=== PATIENT | male | born 1940 | race Caucasian/White ===

== ENCOUNTER 2024-03-30 10:08 | Inpatient (IN) ==
[2024-03-30] MEDS ORDERED: IOPAMIDOL 100 ML BOTTLE IV ONE (10:09)
[2024-03-30] MEDS: 0.9 % SODIUM CHLORIDE 500 ML IV ONE (10:43)
[2024-03-30 10:52] LABS: Basophils # (Auto) 0.04 K/mcL (0.00-0.30); Basophils % (Auto) 0.2 % (0.0-2.0); Eosinophils # (Auto) 0.03 K/mcL (0.00-0.70); Eosinophils % (Auto) 0.2 % (0.0-7.0); Hematocrit 41.7 % (40.1-51.0); Hemoglobin 12.7 g/dL (13.7-17.5); Lymphocytes # (Auto) 0.95 K/mcL (1.50-4.80); Lymphocytes % (Auto) 5.8 % (15.5-49.0); Mean Corpuscular HGB Conc 30.5 g/dL (31.0-36.0); Mean Platelet Volume 11.2 fL (8.8-12.5); Monocytes # (Auto) 1.92 K/mcL (0.10-0.90); Monocytes % (Auto) 11.8 % (1.0-12.0); Neutrophils % (Auto) 81.3 % (38.0-78.0); Platelet Count 231 K/mcL (140-440); Red Cell Distribution Width 14.9 % (11.5-14.5); WBC 16.3 K/mcL (4.5-11.0)
[2024-03-30] MEDS: VANCOMYCIN 1,500 MG in 0.9 % SODIUM CHLORIDE 500 ML IV ONE (11:17)
[2024-03-30 11:22] LABS: ALT/SGPT 14 U/L (<40); AST/SGOT 35 U/L (<40); Albumin 3.4 gm/dL (3.2-5.2); Alkaline Phosphatase 57 U/L (39-117); Bilirubin,Total 0.5 mg/dL (0.1-1.0); Blood Urea Nitrogen 28 mg/dL (8-23); Calcium 9.6 mg/dL (8.6-10.4); Carbon Dioxide 33 mmol/L (22-30); Chloride 97 mmol/L (96-108); Globulin 3.5 gm/dL (2.2-3.7); Glomerular Filtration Rate 50; Glucose 153 mg/dL (70-105); Potassium 4.2 mmol/L (3.3-5.1); Sodium 141 mmol/L (133-145)
[2024-03-30] MEDS: PIPERACILLIN SODIUM/TAZOBACTAM 3.375 GM in DEXTROSE 5% IN WATER 50 ML IV ONE (11:42)
[2024-03-30 11:54] LABS: Free T4 (Free Thyroxine) 1.28 ng/dL (0.93-1.70)
[2024-03-30] MEDS: FUROSEMIDE 100 MG/10 ML VIAL IV ONE (12:25)
[2024-03-30 13:10] LABS: Appearance,Urine Clear (Clear); Bilirubin,Urine Negative (Negative); Color,Urine Yellow; Glucose,Urine (UA) Negative (Negative); Ketones,Urine 15 mg/dL (Negative); Leukocyte Esterase,Urine Negative /uL (Negative); Nitrate,Urine Negative (Negative); PH,Urine 6.5 (5.0-9.0); Protein,Urine 100 mg/dL (Negative); Specific Gravity,Urine 1.015 (1.000-1.035); Urine Blood Small ery/mcL (Negative); Urine Granular Cast 11 /lph (0-0); Urine RBC 0 /hpf (0-3); Urine Squamous Epithelial Cell 0 /hpf (0-4); Urine WBC 0 /hpf (0-4); Urobilinogen,Urine Normal
[2024-03-30] MEDS: LORazepam 2 MG/ML VIAL IV ONE (13:35)
[2024-03-30] MEDS: OLANZapine 10 MG VIAL IM SCH ×2 (14:36→15:19)
[2024-03-30] MEDS ORDERED: PIPERACILLIN SODIUM/TAZOBACTAM 4.5 GM in DEXTROSE 5% IN WATER 50 ML IV SCH (17:15)
[2024-03-30] MEDS ORDERED: ACETAMINOPHEN 325 MG TABLET PO PRN (18:41)
[2024-03-30] MEDS ORDERED: SENNOSIDES 1 TABLET PO PRN (18:41)
[2024-03-30] MEDS ORDERED: IPRATROPIUM/ALBUTEROL 3 ML AMPUL.NEB NEB PRN (18:41)
[2024-03-30] MEDS ORDERED: ONDANSETRON 4 MG/2 ML VIAL IV PRN (18:41)
[2024-03-30] MEDS ORDERED: POLYETHYLENE GLYCOL 3350 17 GM PACKET PO PRN (18:41)
[2024-03-30] MEDS ORDERED: BISACODYL 10 MG SUPP.RECT PR PRN (18:41)
[2024-03-30] MEDS: PIPERACILLIN SODIUM/TAZOBACTAM 4.5 GM in DEXTROSE 5% IN WATER 100 ML IV SCH (19:22)
[2024-03-30] MEDS: HYDROCORTISONE SOD SUCC 100 MG VIAL IV SCH (19:22)
[2024-03-30] MEDS: VANCOMYCIN PER PHARMACY IV ONE (19:24)
[2024-03-30] MEDS: morphine 4 MG/ML VIAL IV PRN (20:52)
[2024-03-30] MEDS: LACTATED RINGERS 1,000 ML IV SCH (21:16)
[2024-03-30] MEDS: FUROSEMIDE 40 MG/4 ML VIAL IV SCH (21:47)
[2024-03-30] MEDS: 0.9 % SODIUM CHLORIDE 10 ML SYRINGE IV SCH (23:42)
[2024-03-30] MEDS: TACROLIMUS 0.5 MG CAPSULE PO SCH (23:47)
[2024-03-31 06:30] LABS: Vancomycin,Random 8.5 ug/mL
[2024-03-31 06:39] LABS: Basophils # (Auto) 0.03 K/mcL (0.00-0.30); Basophils % (Auto) 0.2 % (0.0-2.0); Eosinophils # (Auto) 0.01 K/mcL (0.00-0.70); Eosinophils % (Auto) 0.1 % (0.0-7.0); Hematocrit 40.9 % (40.1-51.0); Hemoglobin 12.5 g/dL (13.7-17.5); Lymphocytes # (Auto) 1.19 K/mcL (1.50-4.80); Lymphocytes % (Auto) 9.1 % (15.5-49.0); Mean Cell Volume 97.8 fL (80.0-100.0); Mean Corpuscular HGB Conc 30.6 g/dL (31.0-36.0); Mean Platelet Volume 11.3 fL (8.8-12.5); Monocytes # (Auto) 0.98 K/mcL (0.10-0.90); Monocytes % (Auto) 7.5 % (1.0-12.0); Neutrophils % (Auto) 82.5 % (38.0-78.0); Platelet Count 230 K/mcL (140-440); RBC 4.18 M/mcL (4.63-6.08); Red Cell Distribution Width 14.8 % (11.5-14.5); WBC 13.1 K/mcL (4.5-11.0)
[2024-03-31 06:53] LABS: ALT/SGPT 20 U/L (<40); AST/SGOT 46 U/L (<40); Albumin 3.3 gm/dL (3.2-5.2); Albumin/Globulin Ratio 0.9 (1.0-2.3); Alkaline Phosphatase 52 U/L (39-117); Bilirubin,Direct < 0.2 mg/dL (0-0.3); Bilirubin,Total 0.4 mg/dL (0.1-1.0); Blood Urea Nitrogen 34 mg/dL (8-23); Calcium 9.4 mg/dL (8.6-10.4); Carbon Dioxide 34 mmol/L (22-30); Chloride 97 mmol/L (96-108); Globulin 3.5 gm/dL (2.2-3.7); Glomerular Filtration Rate 42; Glucose 137 mg/dL (70-105); Lactate Dehydrogenase 281 U/L (135-225); Phosphorous 4.7 mg/dL (2.5-4.5); Potassium 3.6 mmol/L (3.3-5.1); Sodium 146 mmol/L (133-145); Triglycerides 118 mg/dL (<150); Uric Acid 7.8 mg/dL (2.5-8.0)
[2024-03-31] MEDS ORDERED: VANCOMYCIN PER PHARMACY IV SCH (07:19)
[2024-03-31] MEDS: LACTATED RINGERS 1,000 ML IV SCH (07:53)
[2024-03-31] MEDS: VANCOMYCIN 1,500 MG in 0.9 % SODIUM CHLORIDE 500 ML IV SCH (10:04)
[2024-03-31] MEDS ORDERED: [UNRECOGNIZED DRUG - OTHER] SCH (10:30)
[2024-03-31] MEDS: ASPIRIN 325 MG ENTERIC COATED TABLET PO SCH (10:32)
[2024-03-31] MEDS: PANTOPRAZOLE 40 MG TABLET PO SCH (10:33)
[2024-03-31] MEDS: ASPIRIN 81 MG TAB.CHEW CHEWED SCH (15:13)
[2024-03-31 15:38] LABS: Blood Urea Nitrogen 38 mg/dL (8-23); Calcium 8.8 mg/dL (8.6-10.4); Carbon Dioxide 35 mmol/L (22-30); Chloride 98 mmol/L (96-108); Glomerular Filtration Rate 42; Glucose 126 mg/dL (70-105); Potassium 4.2 mmol/L (3.3-5.1); Sodium 144 mmol/L (133-145)
[2024-03-31] MEDS: morphine 2 MG/ML VIAL IV PRN (17:27)
[2024-03-31] MEDS ORDERED: NALOXONE HCL 0.4 MG/ML VIAL IV PRN (17:39)
[2024-03-31] MEDS: morphine 2 MG/ML VIAL IV SCH (17:47)
[2024-03-31] MEDS: QUEtiapine 25 MG TABLET PO SCH ×2 (17:57→18:57)
[2024-03-31] MEDS: traZODone HCL 50 MG TABLET PO PRN (21:18)
[2024-04-01] MEDS: LACTATED RINGERS 1,000 ML IV SCH (02:18)
[2024-04-01 06:09] LABS: Basophils # (Auto) 0.03 K/mcL (0.00-0.30); Basophils % (Auto) 0.3 % (0.0-2.0); Eosinophils # (Auto) 0.02 K/mcL (0.00-0.70); Eosinophils % (Auto) 0.2 % (0.0-7.0); Hematocrit 39.1 % (40.1-51.0); Hemoglobin 11.8 g/dL (13.7-17.5); Lymphocytes # (Auto) 1.09 K/mcL (1.50-4.80); Lymphocytes % (Auto) 9.8 % (15.5-49.0); Mean Cell Volume 99.2 fL (80.0-100.0); Mean Corpuscular HGB Conc 30.2 g/dL (31.0-36.0); Mean Platelet Volume 11.1 fL (8.8-12.5); Monocytes # (Auto) 0.91 K/mcL (0.10-0.90); Monocytes % (Auto) 8.2 % (1.0-12.0); Neutrophils % (Auto) 80.9 % (38.0-78.0); Platelet Count 242 K/mcL (140-440); RBC 3.94 M/mcL (4.63-6.08); Red Cell Distribution Width 14.6 % (11.5-14.5); WBC 11.1 K/mcL (4.5-11.0)
[2024-04-01 06:38] LABS: ALT/SGPT 21 U/L (<40); AST/SGOT 39 U/L (<40); Albumin 3.1 gm/dL (3.2-5.2); Albumin/Globulin Ratio 0.9 (1.0-2.3); Alkaline Phosphatase 44 U/L (39-117); Bilirubin,Direct < 0.2 mg/dL (0-0.3); Bilirubin,Total 0.3 mg/dL (0.1-1.0); Blood Urea Nitrogen 41 mg/dL (8-23); Calcium 8.8 mg/dL (8.6-10.4); Carbon Dioxide 38 mmol/L (22-30); Chloride 101 mmol/L (96-108); Globulin 3.3 gm/dL (2.2-3.7); Glomerular Filtration Rate 45; Glucose 122 mg/dL (70-105); Lactate Dehydrogenase 237 U/L (135-225); Potassium 3.4 mmol/L (3.3-5.1); Sodium 150 mmol/L (133-145); Triglycerides 121 mg/dL (<150); Uric Acid 8.2 mg/dL (2.5-8.0)
[2024-04-01] MEDS: LEVOTHYROXINE 25 MCG TABLET PO SCH (08:08)
[2024-04-01] MEDS: 0.45 % SODIUM CHLORIDE 1,000 ML IV SCH ×2 (08:09→16:39)
[2024-04-01] MEDS: OLANZapine 10 MG VIAL IM SCH (08:15)
[2024-04-01] MEDS: TAMSULOSIN 0.4 MG CAPSULE PO SCH (09:43)
[2024-04-01] MEDS: predniSONE 10 MG TABLET PO SCH (11:57)
[2024-04-01 13:23] LABS: Sodium 146 mmol/L (133-145)
[2024-04-01] MEDS ORDERED: HYDROCORTISONE SOD SUCC 100 MG VIAL IV SCH (14:00)
[2024-04-01] MEDS: morphine 2 MG/ML VIAL IV PRN (19:07)
[2024-04-01] MEDS: QUEtiapine 25 MG TABLET PO PRN (20:46)
[2024-04-02 06:56] LABS: Basophils # (Auto) 0.05 K/mcL (0.00-0.30); Basophils % (Auto) 0.3 % (0.0-2.0); Eosinophils # (Auto) 0.33 K/mcL (0.00-0.70); Eosinophils % (Auto) 2.1 % (0.0-7.0); Hematocrit 43.3 % (40.1-51.0); Hemoglobin 13.2 g/dL (13.7-17.5); Lymphocytes # (Auto) 2.78 K/mcL (1.50-4.80); Mean Cell Volume 97.3 fL (80.0-100.0); Mean Corpuscular HGB Conc 30.5 g/dL (31.0-36.0); Mean Platelet Volume 10.6 fL (8.8-12.5); Monocytes # (Auto) 1.86 K/mcL (0.10-0.90); Neutrophils % (Auto) 66.9 % (38.0-78.0); Platelet Count 277 K/mcL (140-440); RBC 4.45 M/mcL (4.63-6.08); Red Cell Distribution Width 14.3 % (11.5-14.5); WBC 15.5 K/mcL (4.5-11.0)
[2024-04-02 07:30] LABS: C-Reactive Protein 9.09 mg/dL (0.03-0.80)
[2024-04-02 07:37] LABS: ALT/SGPT 23 U/L (<40); AST/SGOT 41 U/L (<40); Albumin 3.5 gm/dL (3.2-5.2); Alkaline Phosphatase 49 U/L (39-117); Bilirubin,Direct < 0.2 mg/dL (0-0.3); Bilirubin,Total 0.4 mg/dL (0.1-1.0); Blood Urea Nitrogen 33 mg/dL (8-23); Calcium 9.1 mg/dL (8.6-10.4); Carbon Dioxide 37 mmol/L (22-30); Chloride 99 mmol/L (96-108); Globulin 3.5 gm/dL (2.2-3.7); Glomerular Filtration Rate 45; Glucose 107 mg/dL (70-105); Lactate Dehydrogenase 298 U/L (135-225); Phosphorous 1.8 mg/dL (2.5-4.5); Potassium 2.9 mmol/L (3.3-5.1); Sodium 148 mmol/L (133-145); Triglycerides 106 mg/dL (<150); Uric Acid 6.2 mg/dL (2.5-8.0)
[2024-04-02] MEDS: predniSONE 5 MG TABLET PO SCH (08:36)
[2024-04-02] MEDS: POTASSIUM CHLORIDE 20 MEQ PACKET PO ONE (08:36)
[2024-04-02] MEDS: POTASSIUM PHOSPHATE 40 MEQ in DEXTROSE 5% IN WATER 500 ML IV ONE (09:08)
[2024-04-02 14:47] LABS: Potassium 3.6 mmol/L (3.3-5.1)
[2024-04-02] MEDS: 0.45 % SODIUM CHLORIDE 1,000 ML IV SCH (15:16)
[2024-04-02 16:17] LABS: Blood Urea Nitrogen 30 mg/dL (8-23); Calcium 8.7 mg/dL (8.6-10.4); Carbon Dioxide 37 mmol/L (22-30); Chloride 98 mmol/L (96-108); Glomerular Filtration Rate 45; Glucose 183 mg/dL (70-105); Potassium 3.7 mmol/L (3.3-5.1); Sodium 147 mmol/L (133-145)
[2024-04-02] MEDS: FUROSEMIDE 40 MG/4 ML VIAL IV SCH (16:49)
[2024-04-02] MEDS: POTASSIUM CHLORIDE 20 MEQ in 0.45 % SODIUM CHLORIDE 1,000 ML IV SCH (17:47)
[2024-04-02] MEDS: OLANZapine 10 MG VIAL ONE (19:57)
[2024-04-02] MEDS: OLANZapine 10 MG VIAL IM SCH (19:58)
[2024-04-03 07:12] LABS: Basophils # (Auto) 0.06 K/mcL (0.00-0.30); Basophils % (Auto) 0.4 % (0.0-2.0); Eosinophils % (Auto) 4.5 % (0.0-7.0); Hematocrit 44.6 % (40.1-51.0); Hemoglobin 13.3 g/dL (13.7-17.5); Lymphocytes # (Auto) 2.08 K/mcL (1.50-4.80); Lymphocytes % (Auto) 15.5 % (15.5-49.0); Mean Corpuscular HGB Conc 29.8 g/dL (31.0-36.0); Mean Platelet Volume 10.6 fL (8.8-12.5); Monocytes # (Auto) 2.02 K/mcL (0.10-0.90); Monocytes % (Auto) 15.1 % (1.0-12.0); Neutrophils % (Auto) 63.7 % (38.0-78.0); Platelet Count 306 K/mcL (140-440); RBC 4.55 M/mcL (4.63-6.08); Red Cell Distribution Width 14.2 % (11.5-14.5); WBC 13.4 K/mcL (4.5-11.0)
[2024-04-03 07:24] LABS: ALT/SGPT 25 U/L (<40); AST/SGOT 39 U/L (<40); Albumin 3.6 gm/dL (3.2-5.2); Alkaline Phosphatase 49 U/L (39-117); Bilirubin,Direct < 0.2 mg/dL (0-0.3); Bilirubin,Total 0.5 mg/dL (0.1-1.0); Blood Urea Nitrogen 29 mg/dL (8-23); Calcium 9.3 mg/dL (8.6-10.4); Carbon Dioxide 39 mmol/L (22-30); Chloride 95 mmol/L (96-108); Globulin 3.5 gm/dL (2.2-3.7); Glomerular Filtration Rate 49; Glucose 114 mg/dL (70-105); Lactate Dehydrogenase 292 U/L (135-225); Phosphorous 2.8 mg/dL (2.5-4.5); Potassium 3.2 mmol/L (3.3-5.1); Sodium 147 mmol/L (133-145); Triglycerides 164 mg/dL (<150); Uric Acid 5.8 mg/dL (2.5-8.0)
[2024-04-03] MEDS: predniSONE 5 MG TABLET PO SCH (07:48)
[2024-04-03] MEDS: POTASSIUM CHLORIDE 80 MEQ in DEXTROSE 5% IN WATER 1,000 ML IV ONE (09:08)
[2024-04-03 14:09] LABS: Tacrolimus (Prograf)-SO 3.4 ng/mL (2.0-20.0)
[2024-04-03] MEDS: OLANZapine 5 MG TABLET PO PRN (20:30)
[2024-04-04 06:51] LABS: Basophils # (Auto) 0.04 K/mcL (0.00-0.30); Basophils % (Auto) 0.3 % (0.0-2.0); Eosinophils # (Auto) 0.46 K/mcL (0.00-0.70); Hematocrit 40.7 % (40.1-51.0); Hemoglobin 12.4 g/dL (13.7-17.5); Lymphocytes # (Auto) 1.63 K/mcL (1.50-4.80); Mean Cell Volume 98.1 fL (80.0-100.0); Mean Corpuscular HGB Conc 30.5 g/dL (31.0-36.0); Mean Platelet Volume 10.5 fL (8.8-12.5); Monocytes # (Auto) 1.58 K/mcL (0.10-0.90); Monocytes % (Auto) 13.6 % (1.0-12.0); Neutrophils % (Auto) 67.3 % (38.0-78.0); Platelet Count 305 K/mcL (140-440); RBC 4.15 M/mcL (4.63-6.08); Red Cell Distribution Width 14.1 % (11.5-14.5); WBC 11.6 K/mcL (4.5-11.0)
[2024-04-04 07:31] LABS: ALT/SGPT 23 U/L (<40); AST/SGOT 32 U/L (<40); Albumin 3.3 gm/dL (3.2-5.2); Albumin/Globulin Ratio 1.1 (1.0-2.3); Alkaline Phosphatase 44 U/L (39-117); Bilirubin,Direct < 0.2 mg/dL (0-0.3); Bilirubin,Total 0.4 mg/dL (0.1-1.0); Blood Urea Nitrogen 31 mg/dL (8-23); Calcium 9.5 mg/dL (8.6-10.4); Carbon Dioxide 38 mmol/L (22-30); Chloride 96 mmol/L (96-108); Globulin 3.1 gm/dL (2.2-3.7); Glomerular Filtration Rate 45; Glucose 103 mg/dL (70-105); Lactate Dehydrogenase 230 U/L (135-225); Phosphorous 2.8 mg/dL (2.5-4.5); Potassium 3.7 mmol/L (3.3-5.1); Sodium 144 mmol/L (133-145); Triglycerides 152 mg/dL (<150)
[2024-04-04] MEDS: ACETAMINOPHEN 1,000 MG/100 ML BAG IV ONE (10:02)
[2024-04-05 10:22] LABS: Basophils # (Auto) 0.05 K/mcL (0.00-0.30); Basophils % (Auto) 0.4 % (0.0-2.0); Eosinophils # (Auto) 0.51 K/mcL (0.00-0.70); Eosinophils % (Auto) 3.9 % (0.0-7.0); Hematocrit 42.8 % (40.1-51.0); Lymphocytes # (Auto) 2.36 K/mcL (1.50-4.80); Lymphocytes % (Auto) 18.1 % (15.5-49.0); Mean Cell Volume 97.3 fL (80.0-100.0); Mean Corpuscular HGB Conc 30.4 g/dL (31.0-36.0); Mean Platelet Volume 10.2 fL (8.8-12.5); Monocytes # (Auto) 1.35 K/mcL (0.10-0.90); Monocytes % (Auto) 10.4 % (1.0-12.0); Neutrophils % (Auto) 66.4 % (38.0-78.0); Platelet Count 333 K/mcL (140-440)
[2024-04-05] MEDS: ACETAMINOPHEN 500 MG TABLET PO PRN (10:25)
[2024-04-05 10:43] LABS: C-Reactive Protein 2.67 mg/dL (0.03-0.80)
[2024-04-05 10:52] LABS: Blood Urea Nitrogen 28 mg/dL (8-23); Calcium 10.1 mg/dL (8.6-10.4); Carbon Dioxide 40 mmol/L (22-30); Chloride 95 mmol/L (96-108); Glomerular Filtration Rate 61; Glucose 117 mg/dL (70-105); Potassium 3.8 mmol/L (3.3-5.1); Sodium 143 mmol/L (133-145)
[2024-04-06 08:16] LABS: Basophils # (Auto) 0.05 K/mcL (0.00-0.30); Basophils % (Auto) 0.4 % (0.0-2.0); Eosinophils # (Auto) 0.46 K/mcL (0.00-0.70); Eosinophils % (Auto) 3.6 % (0.0-7.0); Hematocrit 43.6 % (40.1-51.0); Hemoglobin 13.1 g/dL (13.7-17.5); Lymphocytes # (Auto) 2.24 K/mcL (1.50-4.80); Lymphocytes % (Auto) 17.5 % (15.5-49.0); Mean Cell Volume 97.8 fL (80.0-100.0); Mean Platelet Volume 10.2 fL (8.8-12.5); Monocytes # (Auto) 1.49 K/mcL (0.10-0.90); Monocytes % (Auto) 11.7 % (1.0-12.0); Neutrophils % (Auto) 65.9 % (38.0-78.0); Platelet Count 336 K/mcL (140-440); RBC 4.46 M/mcL (4.63-6.08); WBC 12.8 K/mcL (4.5-11.0)
[2024-04-06 08:36] LABS: ALT/SGPT 20 U/L (<40); AST/SGOT 27 U/L (<40); Albumin 3.5 gm/dL (3.2-5.2); Albumin/Globulin Ratio 1.1 (1.0-2.3); Alkaline Phosphatase 52 U/L (39-117); Bilirubin,Direct < 0.2 mg/dL (0-0.3); Bilirubin,Total 0.2 mg/dL (0.1-1.0); Blood Urea Nitrogen 26 mg/dL (8-23); Calcium 10.3 mg/dL (8.6-10.4); Carbon Dioxide 40 mmol/L (22-30); Chloride 96 mmol/L (96-108); Globulin 3.3 gm/dL (2.2-3.7); Glomerular Filtration Rate 61; Glucose 125 mg/dL (70-105); Lactate Dehydrogenase 217 U/L (135-225); Potassium 3.6 mmol/L (3.3-5.1); Sodium 143 mmol/L (133-145); Triglycerides 167 mg/dL (<150); Uric Acid 6.4 mg/dL (2.5-8.0)
[2024-04-06] MEDS: LISINOPRIL 20 MG TABLET PO SCH (08:36)
[2024-04-06] MEDS: LEVOFLOXACIN 750 MG/150 ML BAG IV SCH (09:32)
[2024-04-06 09:37] LABS: Band Neutrophils % 1 % (0-10); Eosinophils % (Manual) 5 % (0-7); Lymphocytes % 18 % (15-49); Monocytes % (Manual) 9 % (1-12); Myelocytes % 1 %; Platelet Estimate NORMAL (Normal); RBC Morphology NORMAL (Normal); Segmented Neutrophils % 66 % (38-78)
[2024-04-06] MEDS ORDERED: LABETALOL HCL 20 MG/4 ML VIAL IV PRN (12:14)
[2024-04-06] MEDS: acetaZOLAMIDE SOD 500 MG VIAL IV ONE (12:38)
[2024-04-06] MEDS: QUEtiapine 25 MG TABLET PO PRN (22:42)
[2024-04-07 06:38] LABS: Basophils # (Auto) 0.04 K/mcL (0.00-0.30); Basophils % (Auto) 0.3 % (0.0-2.0); Eosinophils # (Auto) 0.33 K/mcL (0.00-0.70); Eosinophils % (Auto) 2.1 % (0.0-7.0); Hematocrit 43.8 % (40.1-51.0); Lymphocytes # (Auto) 2.22 K/mcL (1.50-4.80); Lymphocytes % (Auto) 14.2 % (15.5-49.0); Mean Cell Volume 99.3 fL (80.0-100.0); Mean Corpuscular HGB Conc 29.7 g/dL (31.0-36.0); Mean Platelet Volume 10.8 fL (8.8-12.5); Monocytes # (Auto) 1.63 K/mcL (0.10-0.90); Monocytes % (Auto) 10.5 % (1.0-12.0); Neutrophils % (Auto) 72.1 % (38.0-78.0); Platelet Count 333 K/mcL (140-440); RBC 4.41 M/mcL (4.63-6.08); Red Cell Distribution Width 14.4 % (11.5-14.5); WBC 15.6 K/mcL (4.5-11.0)
[2024-04-07 07:04] LABS: ALT/SGPT 19 U/L (<40); AST/SGOT 25 U/L (<40); Albumin 3.2 gm/dL (3.2-5.2); Alkaline Phosphatase 50 U/L (39-117); Bilirubin,Direct < 0.2 mg/dL (0-0.3); Bilirubin,Total 0.3 mg/dL (0.1-1.0); Blood Urea Nitrogen 36 mg/dL (8-23); Calcium 10.2 mg/dL (8.6-10.4); Carbon Dioxide 37 mmol/L (22-30); Chloride 96 mmol/L (96-108); Globulin 3.2 gm/dL (2.2-3.7); Glomerular Filtration Rate 42; Glucose 117 mg/dL (70-105); Lactate Dehydrogenase 202 U/L (135-225); Potassium 3.2 mmol/L (3.3-5.1); Sodium 142 mmol/L (133-145); Triglycerides 244 mg/dL (<150)
[2024-04-07] MEDS: ENOXAPARIN 30 MG/0.3 ML SYRINGE SQ SCH (08:55)
[2024-04-07] MEDS: METOPROLOL TARTRATE 25 MG TABLET PO SCH (08:56)
[2024-04-07] MEDS ORDERED: LOSARTAN 25 MG TABLET PO SCH (09:00)
[2024-04-07] MEDS: LACTATED RINGERS 1,000 ML IV SCH (14:55)
[2024-04-08 06:33] LABS: ALT/SGPT 24 U/L (<40); AST/SGOT 33 U/L (<40); Albumin 2.9 gm/dL (3.2-5.2); Alkaline Phosphatase 50 U/L (39-117); Bilirubin,Direct < 0.2 mg/dL (0-0.3); Bilirubin,Total 0.2 mg/dL (0.1-1.0); Blood Urea Nitrogen 39 mg/dL (8-23); Calcium 9.5 mg/dL (8.6-10.4); Carbon Dioxide 36 mmol/L (22-30); Chloride 100 mmol/L (96-108); Globulin 2.9 gm/dL (2.2-3.7); Glomerular Filtration Rate 39; Glucose 115 mg/dL (70-105); Lactate Dehydrogenase 179 U/L (135-225); Potassium 3.6 mmol/L (3.3-5.1); Sodium 142 mmol/L (133-145); Triglycerides 207 mg/dL (<150)
[2024-04-08 06:39] LABS: Hematocrit 38.1 % (40.1-51.0); Hemoglobin 11.3 g/dL (13.7-17.5); Mean Cell Volume 98.4 fL (80.0-100.0); Mean Corpuscular HGB Conc 29.7 g/dL (31.0-36.0); Mean Platelet Volume 10.9 fL (8.8-12.5); Platelet Count 304 K/mcL (140-440); RBC 3.87 M/mcL (4.63-6.08); Red Cell Distribution Width 14.4 % (11.5-14.5); WBC 13.6 K/mcL (4.5-11.0)
[2024-04-08] MEDS: ENOXAPARIN 40 MG/0.4 ML SYRINGE SQ SCH (08:19)
[2024-04-08 09:00] LABS: Eosinophils % (Manual) 1 % (0-7); Lymphocytes % 12 % (15-49); Monocytes % (Manual) 10 % (1-12); Platelet Estimate NORMAL (Normal); RBC Morphology NORMAL (Normal); Reactive Lymphocytes 3 % (0-2); Segmented Neutrophils % 74 % (38-78)
[2024-04-08] MEDS ORDERED: ASPIRIN 325 MG ENTERIC COATED TABLET PO SCH (09:00)
[2024-04-08] MEDS: ASPIRIN 81 MG TAB.CHEW PO SCH (09:45)
[2024-04-08] MEDS: 0.9 % SODIUM CHLORIDE 1,000 ML IV ONE (12:55)
[2024-04-09 07:03] LABS: ALT/SGPT 35 U/L (<40); AST/SGOT 41 U/L (<40); Alkaline Phosphatase 59 U/L (39-117); Bilirubin,Direct < 0.2 mg/dL (0-0.3); Bilirubin,Total 0.2 mg/dL (0.1-1.0); Blood Urea Nitrogen 34 mg/dL (8-23); Calcium 9.5 mg/dL (8.6-10.4); Carbon Dioxide 36 mmol/L (22-30); Chloride 102 mmol/L (96-108); Glomerular Filtration Rate 55; Glucose 111 mg/dL (70-105); Lactate Dehydrogenase 180 U/L (135-225); Phosphorous 3.2 mg/dL (2.5-4.5); Potassium 3.5 mmol/L (3.3-5.1); Sodium 144 mmol/L (133-145); Triglycerides 212 mg/dL (<150); Uric Acid 6.8 mg/dL (2.5-8.0)
[2024-04-09] MEDS: METOPROLOL TARTRATE 25 MG TABLET PO SCH (08:42)
== END 2024-04-09 11:20 | DRG 193 ==
LOC: ED 10:08 → MEDSUR 18:33
PROVIDERS: ADMIT Student in an Organized Health Care Education/Training Program; ATTEND Internal Medicine

== ENCOUNTER 2024-10-15 07:37 | Inpatient (IN) ==
[2024-10-15 08:44] LABS: Basophils # (Auto) 0.03 K/mcL (0.00-0.30); Basophils % (Auto) 0.1 % (0.0-2.0); Eosinophils # (Auto) 0.04 K/mcL (0.00-0.70); Eosinophils % (Auto) 0.1 % (0.0-7.0); Hemoglobin 11.7 g/dL (13.7-17.5); Lymphocytes # (Auto) 2.26 K/mcL (1.50-4.80); Lymphocytes % (Auto) 8.1 % (15.5-49.0); Mean Corpuscular HGB Conc 30.8 g/dL (31.0-36.0); Mean Platelet Volume 10.9 fL (8.8-12.5); Monocytes # (Auto) 2.98 K/mcL (0.10-0.90); Monocytes % (Auto) 10.7 % (1.0-12.0); Neutrophils % (Auto) 80.4 % (38.0-78.0); Platelet Count 283 K/mcL (140-440); Red Cell Distribution Width 16.3 % (11.5-14.5); WBC 27.9 K/mcL (4.5-11.0)
[2024-10-15 09:12] LABS: ALT/SGPT 20 U/L (<40); AST/SGOT 27 U/L (<40); Albumin 3.2 gm/dL (3.2-5.2); Albumin/Globulin Ratio 0.9 (1.0-2.3); Alkaline Phosphatase 77 U/L (39-117); Bilirubin,Total 0.7 mg/dL (0.1-1.0); Blood Urea Nitrogen 37 mg/dL (8-23); Calcium 9.3 mg/dL (8.6-10.4); Carbon Dioxide 34 mmol/L (22-30); Chloride 99 mmol/L (96-108); Globulin 3.4 gm/dL (2.2-3.7); Glomerular Filtration Rate 38; Glucose 88 mg/dL (70-105); Potassium 3.7 mmol/L (3.3-5.1); Sodium 143 mmol/L (133-145)
[2024-10-15 10:09] LABS: Appearance,Urine Clear (Clear); Bacteria,Urine Many /hpf (0); Bilirubin,Urine Negative (Negative); Color,Urine Yellow; Glucose,Urine (UA) Negative (Negative); Ketones,Urine Trace mg/dL (Negative); Leukocyte Esterase,Urine Moderate /uL (Negative); Nitrate,Urine Negative (Negative); PH,Urine 7.5 (5.0-9.0); Protein,Urine 100 mg/dL (Negative); Urine Blood Moderate ery/mcL (Negative); Urine Hyaline Cast 4 /lph (0-2); Urine RBC 45 /hpf (0-3); Urine Squamous Epithelial Cell 2 /hpf (0-4); Urine WBC > 182 /hpf (0-4); Urobilinogen,Urine Normal
[2024-10-15] MEDS: LEVOFLOXACIN 750 MG/150 ML BAG IV ONE (11:24)
[2024-10-15] MEDS: VANCOMYCIN 1,500 MG in 0.9 % SODIUM CHLORIDE 500 ML IV ONE (15:00)
[2024-10-15] MEDS: VANCOMYCIN PER PHARMACY IV ONE (15:04)
[2024-10-15] MEDS ORDERED: ACETAMINOPHEN 325 MG TABLET PO PRN (16:07)
[2024-10-15] MEDS ORDERED: DEXTROSE 50% 50 ML VIAL IV PRN (16:07)
[2024-10-15] MEDS ORDERED: SENNOSIDES 1 TABLET PO PRN (16:07)
[2024-10-15] MEDS ORDERED: LACTULOSE 20 GM/30 ML ORAL.SOL PO PRN (16:07)
[2024-10-15] MEDS ORDERED: IPRATROPIUM/ALBUTEROL 3 ML AMPUL.NEB NEB PRN (16:07)
[2024-10-15] MEDS ORDERED: ONDANSETRON 4 MG/2 ML VIAL IV PRN (16:07)
[2024-10-15] MEDS ORDERED: DEXTROSE 31 GM ORAL.SUSP PO PRN (16:07)
[2024-10-15] MEDS: LACTATED RINGERS 1,000 ML IV ONE (16:30)
[2024-10-15] MEDS ORDERED: VANCOMYCIN PER PHARMACY IV SCH (16:30)
[2024-10-15] MEDS: INSULIN LISPRO 1 UNIT/0.01 ML UNIT SQ SCH (17:42)
[2024-10-15] MEDS: LACTATED RINGERS 1,000 ML IV SCH (17:52)
[2024-10-15] MEDS: HEPARIN 5,000 UNIT/ML VIAL SQ SCH (21:44)
[2024-10-15] MEDS: 0.9 % SODIUM CHLORIDE 10 ML SYRINGE IV SCH (21:45)
[2024-10-15] MEDS: DOCUSATE SODIUM 100 MG CAPSULE PO SCH (21:45)
[2024-10-15] MEDS: LACTATED RINGERS 500 ML IV ONE (22:47)
[2024-10-16] MEDS: LACTATED RINGERS 1,000 ML IV ONE (00:17)
[2024-10-16] MEDS: LACTATED RINGERS 500 ML IV ONE (00:23)
[2024-10-16] MEDS: LACTATED RINGERS 500 ML IV SCH (07:02)
[2024-10-16 07:09] LABS: ALT/SGPT 14 U/L (<40); AST/SGOT 11 U/L (<40); Albumin 2.7 gm/dL (3.2-5.2); Albumin/Globulin Ratio 0.7 (1.0-2.3); Alkaline Phosphatase 84 U/L (39-117); Bilirubin,Direct < 0.2 mg/dL (0-0.3); Bilirubin,Total < 0.2 mg/dL (0.1-1.0); Blood Urea Nitrogen 54 mg/dL (8-23); Calcium 9.3 mg/dL (8.6-10.4); Carbon Dioxide 31 mmol/L (22-30); Chloride 99 mmol/L (96-108); Globulin 3.7 gm/dL (2.2-3.7); Glomerular Filtration Rate 38; Glucose 142 mg/dL (70-105); Lactate Dehydrogenase 172 U/L (135-225); Phosphorous 4.4 mg/dL (2.5-4.5); Potassium 4.7 mmol/L (3.3-5.1); Sodium 139 mmol/L (133-145); Triglycerides 117 mg/dL (<150); Uric Acid 8.1 mg/dL (2.5-8.0)
[2024-10-16 09:33] LABS: Basophils # (Auto) 0.08 K/mcL (0.00-0.30); Basophils % (Auto) 0.4 % (0.0-2.0); Eosinophils % (Auto) 1.5 % (0.0-7.0); Hematocrit 37.1 % (40.1-51.0); Hemoglobin 11.2 g/dL (13.7-17.5); Lymphocytes # (Auto) 2.36 K/mcL (1.50-4.80); Lymphocytes % (Auto) 12.1 % (15.5-49.0); Mean Cell Volume 96.9 fL (80.0-100.0); Mean Corpuscular HGB Conc 30.2 g/dL (31.0-36.0); Monocytes % (Auto) 7.7 % (1.0-12.0); Neutrophils % (Auto) 77.6 % (38.0-78.0); RBC 3.83 M/mcL (4.63-6.08); Red Cell Distribution Width 16.3 % (11.5-14.5); WBC 19.5 K/mcL (4.5-11.0)
[2024-10-16] MEDS ORDERED: VANCOMYCIN 1,500 MG in 0.9 % SODIUM CHLORIDE 500 ML IV SCH (11:00)
[2024-10-16] MEDS: BISACODYL 5 MG TABLET PO SCH (12:18)
[2024-10-16] MEDS ORDERED: BISACODYL 5 MG TABLET PO PRN (12:21)
[2024-10-16] MEDS ORDERED: HYDROCODONE/APAP 7.5/325MG TABLET PO PRN (12:30)
[2024-10-16] MEDS: VANCOMYCIN 1,000 MG in 0.9 % SODIUM CHLORIDE 250 ML IV SCH (13:01)
[2024-10-16] MEDS: CALCIUM CARBONATE 500 MG TAB.CHEW PO SCH (15:17)
[2024-10-16] MEDS: FAMOTIDINE 20 MG TABLET PO SCH (20:52)
[2024-10-16] MEDS: QUEtiapine 25 MG TABLET PO PRN (20:52)
[2024-10-16] MEDS: ATORVASTATIN 20 MG TABLET PO SCH (20:52)
[2024-10-16] MEDS: TACROLIMUS 1 MG CAPSULE PO SCH (20:56)
[2024-10-17 05:58] LABS: Basophils # (Auto) 0.04 K/mcL (0.00-0.30); Basophils % (Auto) 0.3 % (0.0-2.0); Eosinophils % (Auto) 4.3 % (0.0-7.0); Hematocrit 34.6 % (40.1-51.0); Hemoglobin 10.4 g/dL (13.7-17.5); Lymphocytes % (Auto) 15.4 % (15.5-49.0); Mean Cell Volume 96.1 fL (80.0-100.0); Mean Corpuscular HGB Conc 30.1 g/dL (31.0-36.0); Mean Platelet Volume 10.8 fL (8.8-12.5); Monocytes % (Auto) 13.7 % (1.0-12.0); Platelet Count 294 K/mcL (140-440); Red Cell Distribution Width 15.8 % (11.5-14.5); WBC 11.7 K/mcL (4.5-11.0)
[2024-10-17 06:36] LABS: ALT/SGPT 25 U/L (<40); AST/SGOT 32 U/L (<40); Albumin 2.6 gm/dL (3.2-5.2); Albumin/Globulin Ratio 0.9 (1.0-2.3); Alkaline Phosphatase 60 U/L (39-117); Bilirubin,Direct < 0.2 mg/dL (0-0.3); Bilirubin,Total 0.3 mg/dL (0.1-1.0); Blood Urea Nitrogen 37 mg/dL (8-23); Calcium 8.9 mg/dL (8.6-10.4); Carbon Dioxide 32 mmol/L (22-30); Chloride 104 mmol/L (96-108); Globulin 2.8 gm/dL (2.2-3.7); Glomerular Filtration Rate 49; Glucose 91 mg/dL (70-105); Lactate Dehydrogenase 125 U/L (135-225); Potassium 3.6 mmol/L (3.3-5.1); Sodium 146 mmol/L (133-145); Triglycerides 104 mg/dL (<150); Uric Acid 8.1 mg/dL (2.5-8.0)
[2024-10-17] MEDS: LEVOTHYROXINE 25 MCG TABLET PO SCH (07:41)
[2024-10-17] MEDS ORDERED: LEVOFLOXACIN 750 MG/150 ML BAG IV SCH (09:00)
[2024-10-17] MEDS: predniSONE 5 MG TABLET PO SCH (09:50)
[2024-10-17] MEDS: METOPROLOL TARTRATE 25 MG TABLET PO SCH (09:50)
[2024-10-17] MEDS: ASPIRIN 81 MG TAB.CHEW PO SCH (09:50)
[2024-10-17] MEDS: TAMSULOSIN 0.4 MG CAPSULE PO SCH (09:50)
[2024-10-17] MEDS: LEVOFLOXACIN 500 MG/100 ML BAG IV SCH (09:51)
[2024-10-17] MEDS: VITAMIN D3 25 MCG TABLET PO SCH ×2 (10:26→10:42)
[2024-10-17] MEDS: LACTATED RINGERS 1,000 ML IV ONE (11:31)
[2024-10-17] MEDS: 0.45 % SODIUM CHLORIDE 1,000 ML IV SCH (12:32)
[2024-10-17 16:43] LABS: Sodium 143 mmol/L (133-145)
[2024-10-17 23:10] LABS: Blood Urea Nitrogen 35 mg/dL (8-23); Calcium 8.8 mg/dL (8.6-10.4); Carbon Dioxide 32 mmol/L (22-30); Chloride 103 mmol/L (96-108); Glomerular Filtration Rate 60; Glucose 122 mg/dL (70-105); Potassium 4.6 mmol/L (3.3-5.1); Sodium 142 mmol/L (133-145)
[2024-10-18] MEDS: morphine 4 MG/ML VIAL IV PRN (02:57)
[2024-10-18 06:57] LABS: Basophils # (Auto) 0.04 K/mcL (0.00-0.30); Basophils % (Auto) 0.3 % (0.0-2.0); Eosinophils # (Auto) 0.42 K/mcL (0.00-0.70); Eosinophils % (Auto) 3.1 % (0.0-7.0); Hematocrit 34.5 % (40.1-51.0); Hemoglobin 10.3 g/dL (13.7-17.5); Lymphocytes # (Auto) 2.26 K/mcL (1.50-4.80); Lymphocytes % (Auto) 16.7 % (15.5-49.0); Mean Cell Volume 96.6 fL (80.0-100.0); Mean Corpuscular HGB Conc 29.9 g/dL (31.0-36.0); Monocytes % (Auto) 11.8 % (1.0-12.0); Neutrophils % (Auto) 67.3 % (38.0-78.0); Platelet Count 330 K/mcL (140-440); RBC 3.57 M/mcL (4.63-6.08); Red Cell Distribution Width 15.6 % (11.5-14.5); WBC 13.6 K/mcL (4.5-11.0)
[2024-10-18 07:13] LABS: ALT/SGPT 23 U/L (<40); AST/SGOT 25 U/L (<40); Albumin 2.6 gm/dL (3.2-5.2); Albumin/Globulin Ratio 0.8 (1.0-2.3); Alkaline Phosphatase 61 U/L (39-117); Bilirubin,Direct < 0.2 mg/dL (0-0.3); Bilirubin,Total 0.2 mg/dL (0.1-1.0); Blood Urea Nitrogen 33 mg/dL (8-23); Calcium 9.2 mg/dL (8.6-10.4); Carbon Dioxide 33 mmol/L (22-30); Chloride 103 mmol/L (96-108); Globulin 3.1 gm/dL (2.2-3.7); Glomerular Filtration Rate 60; Glucose 95 mg/dL (70-105); Lactate Dehydrogenase 159 U/L (135-225); Phosphorous 3.2 mg/dL (2.5-4.5); Sodium 144 mmol/L (133-145); Triglycerides 105 mg/dL (<150); Uric Acid 7.2 mg/dL (2.5-8.0)
[2024-10-18] MEDS: LEVOFLOXACIN 750 MG TABLET PO SCH (12:30)
[2024-10-19 06:23] LABS: Basophils # (Auto) 0.04 K/mcL (0.00-0.30); Basophils % (Auto) 0.3 % (0.0-2.0); Eosinophils # (Auto) 0.38 K/mcL (0.00-0.70); Hematocrit 37.4 % (40.1-51.0); Lymphocytes # (Auto) 2.65 K/mcL (1.50-4.80); Lymphocytes % (Auto) 21.1 % (15.5-49.0); Mean Cell Volume 97.4 fL (80.0-100.0); Mean Corpuscular HGB Conc 29.4 g/dL (31.0-36.0); Mean Platelet Volume 10.6 fL (8.8-12.5); Monocytes # (Auto) 1.49 K/mcL (0.10-0.90); Monocytes % (Auto) 11.8 % (1.0-12.0); Neutrophils % (Auto) 61.6 % (38.0-78.0); Platelet Count 314 K/mcL (140-440); RBC 3.84 M/mcL (4.63-6.08); Red Cell Distribution Width 15.3 % (11.5-14.5); WBC 12.6 K/mcL (4.5-11.0)
[2024-10-19 06:42] LABS: C-Reactive Protein 7.38 mg/dL (0.03-0.80)
[2024-10-19 06:45] LABS: ALT/SGPT 22 U/L (<40); AST/SGOT 23 U/L (<40); Albumin/Globulin Ratio 0.9 (1.0-2.3); Alkaline Phosphatase 61 U/L (39-117); Bilirubin,Direct < 0.2 mg/dL (0-0.3); Bilirubin,Total 0.2 mg/dL (0.1-1.0); Blood Urea Nitrogen 28 mg/dL (8-23); Calcium 9.7 mg/dL (8.6-10.4); Carbon Dioxide 34 mmol/L (22-30); Chloride 101 mmol/L (96-108); Globulin 3.2 gm/dL (2.2-3.7); Glomerular Filtration Rate 60; Glucose 91 mg/dL (70-105); Lactate Dehydrogenase 154 U/L (135-225); Phosphorous 3.2 mg/dL (2.5-4.5); Potassium 4.3 mmol/L (3.3-5.1); Sodium 146 mmol/L (133-145); Triglycerides 97 mg/dL (<150); Uric Acid 6.6 mg/dL (2.5-8.0)
[2024-10-19] MEDS: HYDROCHLOROTHIAZIDE 25 MG TABLET PO ONE (07:39)
[2024-10-19] MEDS: LOSARTAN 25 MG TABLET PO SCH (09:09)
[2024-10-19] MEDS: LEVOFLOXACIN 750 MG TABLET PO SCH (09:11)
[2024-10-20 06:16] LABS: ALT/SGPT 40 U/L (<40); AST/SGOT 25 U/L (<40); Alkaline Phosphatase 58 U/L (39-117); Bilirubin,Direct < 0.2 mg/dL (0-0.3); Bilirubin,Total 0.3 mg/dL (0.1-1.0); Blood Urea Nitrogen 25 mg/dL (8-23); Carbon Dioxide 37 mmol/L (22-30); Chloride 95 mmol/L (96-108); Globulin 2.9 gm/dL (2.2-3.7); Glomerular Filtration Rate 68; Glucose 109 mg/dL (70-105); Lactate Dehydrogenase 178 U/L (135-225); Phosphorous 2.3 mg/dL (2.5-4.5); Sodium 138 mmol/L (133-145); Triglycerides 128 mg/dL (<150); Uric Acid 6.3 mg/dL (2.5-8.0)
[2024-10-20 11:49] VITALS: TEMP 97.8; O2SAT 94
== END 2024-10-20 13:05 | DRG 871 ==
LOC: ED 07:37 → ICU 15:45 → MEDSUR 10-19 19:15
PROVIDERS: ADMIT Student in an Organized Health Care Education/Training Program; ATTEND Internal Medicine